=== PATIENT | female | born 1935 | race Caucasian/White ===

== ENCOUNTER 2018-08-12 16:56 | Inpatient (IN) ==
[2018-08-12] MEDS ORDERED: ALBUT/IPRATROP 3MG/0.5MG NEB 3 ML VIAL NEB STA (17:26)
[2018-08-12] MEDS ORDERED: ACETAMINOPHEN 1000 MG/100 ML IV IV STA (17:26)
[2018-08-12] MEDS ORDERED: ONDANSETRON INJ 2 MG/ML 2 ML VIAL IV STA (17:26)
[2018-08-12] MEDS ORDERED: SODIUM CHLORIDE 0.9% 1000ML 1,000 ML IV SCH (17:30)
--- NOTE | 2018-08-12 17:45 | Emergency Department Note ---
Entered by Sole Gonzalez acting as a scribe for Richi Alas MD History of Present Illness General Chief complaint: Hyperglycemia Stated complaint: HIGH BLOOD SUGAR, FEVER, HAS URINATED Time Seen by Provider: 08/12/18 17:19 Source: patient Limitations: no limitations History of Present Illness Provider complaint: dizziness Onset (ago): day(s) 1 Location: head Associated symptoms: + denies other symptoms (bloody stool, diarrhea ), + cough , + fever/chills (chills no fever) and + other (+fatigue, +wheezing) The patient is a 83 year old female who presents to the Emergency Room with complaints of dizziness that began 1 day prior to arrival. The patient states that she has fatigue, wheezing, chills, and a cough. The patient states that standing exacerbates her dizziness. The patient denies any bloody stool or diarrhea. The patient states that she hasn't been able to urinate. Per daughter , the patient's blood sugar was 325. The patient states that she takes medicine for anxiety. The patient states that she has been a smoker for 65+ years. Home Medications Home Medications Medication Instructions Recorded Confirmed Type albuterol sulfate 1 puff INHALATION Q6H PRN 08/12/18 08/12/18 History escitalopram oxalate 20 mg PO QAM 08/12/18 08/12/18 History fluticasone-salmeterol [Advair 1 inh INHALATION BID 08/12/18 08/12/18 History Diskus] gabapentin 600 mg PO HS 08/12/18 08/12/18 History levothyroxine 75 mcg PO QAM 08/12/18 08/12/18 History lisinopril 5 mg PO QAM 08/12/18 08/12/18 History metformin 1,000 mg PO BID 08/12/18 08/12/18 History Allergies Allergy/AdvReac Type Severity Reaction Status Date / Time No Known Allergies Allergy Unverified 08/12/18 18:22 Past Med/Surg History Medical History DM2 (diabetes mellitus, type 2) (Chronic) HTN (hypertension) (Chronic) HLD (hyperlipidemia) (Chronic) COPD (chronic obstructive pulmonary disease) (Chronic) Anxiety (Chronic) NHL (non-Hodgkin's lymphoma) (Chronic) Tobacco abuse (Chronic) Hypothyroidism (Chronic) COPD (chronic obstructive pulmonary disease) (Inactive) Diabetes type 2, controlled (Inactive) HLD (hyperlipidemia) (Inactive) HTN (hypertension) (Inactive) Surgical History S/P GERBER-BSO (Chronic) S/P GREBER-BSO (Inactive) Family History Other Family history non-contributory Social History Current Living Situation: Family Current Living Situation Comment: own home w/ son, other children live close by Other Information That Helps Us Care for You: No Feels Safe at Home: Yes Safety Concerns: Feels Safe At This Time Smoking Status: Current every day smoker Tobacco Type: cigarettes Cigarettes per Day: 20 Do You Dip or Chew Tobacco: No Hx Alcohol Use: No Hx Substance Use: No Beliefs That Will Affect Care: None Preferred Language: Serbian Communication Ability: Impaired Communication Ability Comment: ? terminal, has been given Ativan for restlessness/anxiety Mounter Smoking Pipe Required: No Review of Systems See HPI for pertinent positives & negatives. and A total of 10 systems reviewed and were otherwise negative Physical Exam Vital Signs Vital Signs - 24 hr 08/12/18 17:02 08/12/18 17:12 08/12/18 17:14 Temperature 36.3 C L Temperature Source Oral Sepsis Recent Fever Within 48 Hours No Sepsis Action Taken by Nursing No Action Required Pulse Rate 116 H 103 H 102 H Pulse Rate [Apical] Pulse Rhythm Pulse Rhythm [Apical] Pulse Strength [Apical] Respiratory Rate 22 30 H 29 H Respiratory Effort / Characteristics Non-Labored Respiratory Depth Normal Respiratory Pattern Blood Pressure 70/51 L 106/60 Blood Pressure [Right Arm] Blood Pressure Mean 57 75 Blood Pressure Mean [Right Arm] Blood Pressure Position Sitting Blood Pressure Position [Right Arm] Pulse Oximetry 99 Oxygen Delivery Method Room Air Fraction of Inspired Oxygen SaO2/FiO2 Ratio 08/12/18 17:15 08/12/18 17:30 08/12/18 17:43 Temperature Temperature Source Sepsis Recent Fever Within 48 Hours Sepsis Action Taken by Nursing Pulse Rate 101 H 100 H 100 H Pulse Rate [Apical] 100 H Pulse Rhythm Pulse Rhythm [Apical] Regular Pulse Strength [Apical] Normal Respiratory Rate 29 H 28 H 29 H Respiratory Effort / Characteristics Non-Labored Respiratory Depth Normal Respiratory Pattern Regular Blood Pressure 75/56 L Blood Pressure [Right Arm] 106/56 L Blood Pressure Mean 62 Blood Pressure Mean [Right Arm] 72 Blood Pressure Position Blood Pressure Position [Right Arm] Sitting Pulse Oximetry 92 Oxygen Delivery Method Room Air Fraction of Inspired Oxygen SaO2/FiO2 Ratio 08/12/18 17:44 08/12/18 17:45 08/12/18 17:47 Temperature Temperature Source Sepsis Recent Fever Within 48 Hours Sepsis Action Taken by Nursing Pulse Rate 100 H 100 H 97 H Pulse Rate [Apical] Pulse Rhythm Pulse Rhythm [Apical] Pulse Strength [Apical] Respiratory Rate 29 H 27 H 21 Respiratory Effort / Characteristics Respiratory Depth Respiratory Pattern Blood Pressure 76/60 L 71/52 L Blood Pressure [Right Arm] Blood Pressure Mean 65 58 Blood Pressure Mean [Right Arm] Blood Pressure Position Blood Pressure Position [Right Arm] Pulse Oximetry Oxygen Delivery Method Fraction of Inspired Oxygen SaO2/FiO2 Ratio 08/12/18 17:50 08/12/18 18:00 08/12/18 18:01 Temperature Temperature Source Sepsis Recent Fever Within 48 Hours Sepsis Action Taken by Nursing Pulse Rate 100 H 98 H 99 H Pulse Rate [Apical] Pulse Rhythm Regular Pulse Rhythm [Apical] Pulse Strength [Apical] Respiratory Rate 22 Respiratory Effort / Characteristics Respiratory Depth Respiratory Pattern Blood Pressure 89/71 L Blood Pressure [Right Arm] Blood Pressure Mean 77 Blood Pressure Mean [Right Arm] Blood Pressure Position Blood Pressure Position [Right Arm] Pulse Oximetry 94 92 92 Oxygen Delivery Method Room Air Fraction of Inspired Oxygen SaO2/FiO2 Ratio 08/12/18 18:15 08/12/18 18:29 08/12/18 18:31 Temperature Temperature Source Sepsis Recent Fever Within 48 Hours Sepsis Action Taken by Nursing Pulse Rate 99 H 102 H 102 H Pulse Rate [Apical] Pulse Rhythm Pulse Rhythm [Apical] Pulse Strength [Apical] Respiratory Rate 29 H 17 24 Respiratory Effort / Characteristics Respiratory Depth Respiratory Pattern Blood Pressure 82/64 L 89/61 L Blood Pressure [Right Arm] Blood Pressure Mean 70 70 Blood Pressure Mean [Right Arm] Blood Pressure Position Blood Pressure Position [Right Arm] Pulse Oximetry 90 Oxygen Delivery Method Fraction of Inspired Oxygen SaO2/FiO2 Ratio 08/12/18 18:45 08/12/18 18:51 08/12/18 18:58 Temperature Temperature Source Sepsis Recent Fever Within 48 Hours Sepsis Action Taken by Nursing Pulse Rate 95 H 93 H 95 H Pulse Rate [Apical] Pulse Rhythm Pulse Rhythm [Apical] Pulse Strength [Apical] Respiratory Rate 20 21 25 H Respiratory Effort / Characteristics Respiratory Depth Respiratory Pattern Blood Pressure 69/59 L 71/51 L Blood Pressure [Right Arm] Blood Pressure Mean 62 57 Blood Pressure Mean [Right Arm] Blood Pressure Position Blood Pressure Position [Right Arm] Pulse Oximetry 100 100 97 Oxygen Delivery Method Fraction of Inspired Oxygen SaO2/FiO2 Ratio 08/12/18 18:59 08/12/18 19:00 08/12/18 19:01 Temperature Temperature Source Sepsis Recent Fever Within 48 Hours Sepsis Action Taken by Nursing Pulse Rate 113 H 94 H Pulse Rate [Apical] 93 H Pulse Rhythm Pulse Rhythm [Apical] Regular Pulse Strength [Apical] Normal Respiratory Rate 21 20 14 Respiratory Effort / Characteristics Non-Labored Non-Labored Spontaneous Respiratory Depth Normal Respiratory Pattern Regular Blood Pressure 71/55 L Blood Pressure [Right Arm] 71/55 L Blood Pressure Mean 60 Blood Pressure Mean [Right Arm] 60 Blood Pressure Position Blood Pressure Position [Right Arm] Pulse Oximetry 100 97 98 Oxygen Delivery Method BiPAP Fraction of Inspired Oxygen 50 SaO2/FiO2 Ratio 08/12/18 19:15 08/12/18 19:16 08/12/18 19:26 Temperature Temperature Source Sepsis Recent Fever Within 48 Hours Sepsis Action Taken by Nursing Pulse Rate 95 H 99 H Pulse Rate [Apical] Pulse Rhythm Pulse Rhythm [Apical] Pulse Strength [Apical] Respiratory Rate 21 23 Respiratory Effort / Characteristics Non-Labored Spontaneous Respiratory Depth Normal Respiratory Pattern Regular Blood Pressure 65/55 L Blood Pressure [Right Arm] Blood Pressure Mean 58 Blood Pressure Mean [Right Arm] Blood Pressure Position Blood Pressure Position [Right Arm] Pulse Oximetry 98 98 Oxygen Delivery Method BiPAP Fraction of Inspired Oxygen SaO2/FiO2 Ratio 08/12/18 19:30 08/12/18 19:32 08/12/18 19:45 Temperature Temperature Source Sepsis Recent Fever Within 48 Hours Sepsis Action Taken by Nursing Pulse Rate 96 H 95 H 97 H Pulse Rate [Apical] Pulse Rhythm Pulse Rhythm [Apical] Pulse Strength [Apical] Respiratory Rate 22 22 25 H Respiratory Effort / Characteristics Respiratory Depth Respiratory Pattern Blood Pressure 68/56 L 78/53 L Blood Pressure [Right Arm] Blood Pressure Mean 60 61 Blood Pressure Mean [Right Arm] Blood Pressure Position Blood Pressure Position [Right Arm] Pulse Oximetry 99 100 99 Oxygen Delivery Method Fraction of Inspired Oxygen SaO2/FiO2 Ratio 08/12/18 19:46 08/12/18 20:00 08/12/18 20:31 Temperature Temperature Source Sepsis Recent Fever Within 48 Hours Sepsis Action Taken by Nursing Pulse Rate 96 H 98 H Pulse Rate [Apical] 110 H Pulse Rhythm Pulse Rhythm [Apical] Regular Pulse Strength [Apical] Weak Respiratory Rate 24 21 23 Respiratory Effort / Characteristics Non-Labored Spontaneous Respiratory Depth Normal Respiratory Pattern Regular Blood Pressure 66/56 L 84/63 L Blood Pressure [Right Arm] 84/60 L Blood Pressure Mean 59 70 Blood Pressure Mean [Right Arm] 68 Blood Pressure Position Blood Pressure Position [Right Arm] Pulse Oximetry 97 99 95 Oxygen Delivery Method BiPAP Fraction of Inspired Oxygen 50 SaO2/FiO2 Ratio 190 08/12/18 20:42 08/12/18 21:00 Temperature Temperature Source Sepsis Recent Fever Within 48 Hours Sepsis Action Taken by Nursing Pulse Rate 105 H Pulse Rate [Apical] Pulse Rhythm Pulse Rhythm [Apical] Pulse Strength [Apical] Respiratory Rate 28 H Respiratory Effort / Characteristics Spontaneous Labored Non-Labored Spontaneous Respiratory Depth Normal Normal Respiratory Pattern Regular Regular Blood Pressure Blood Pressure [Right Arm] Blood Pressure Mean Blood Pressure Mean [Right Arm] Blood Pressure Position Blood Pressure Position [Right Arm] Pulse Oximetry 96 Oxygen Delivery Method BiPAP Fraction of Inspired Oxygen 50 50 SaO2/FiO2 Ratio GENERAL: Patient is in no acute distress. HEENT: No acute trauma, normocephalic atraumatic, mucous membranes dry, no nasal congestion, no scleral icterus. NECK: No stridor, no adenopathy, no meningismus, trachea is midline. LUNGS: Scattered crackles bilaterally, no wheeze, breath sounds equal, no respiratory distress. HEART: Tachycardic with a regular rhythm, no murmurs. ABDOMEN: Soft, nontender, bowel sounds positive, no hernias, no peritonitis. EXTREMITIES: No cyanosis or edema, full range of motion of all the joints without pain or difficulty, no signs for acute trauma. NEUROLOGIC: Oriented x 3, no acute motor or sensory deficits, no focal weakness. SKIN: No rash, no jaundice, no diaphoresis, pale. Course 1720: Past medical records reviewed. The patient was evaluated in room A3, and a complete history and physical examination were performed. 1823: I checked on and updated the patient. The patient appears to be very ill and the patient states that she is a DNR. I am going to contact a [facility] hospitalist and discuss the patient's case. 1845: I discussed the patient's case with MISSY Franklin for [facility] who will evaluate the patient for further hospitalization. 1914: I checked on the patient again. I also had a discussion with the patient' s family about how sick the patient is and that she might not survive her hospital stay and they understood the patient's condition. 0: I discussed the patient's case with Dr. Pimentel - Critical Care from the ICU and he states that he is going to come and assess the patient. Consultations Consultation #1: MISSY Franklin for [facility] Time: 18:45 Consultation #2: Dr. Pimentel - Critical Care from the ICU Time: 19:20 Administered Medications Norepinephrine Bitartrate 8 mg (/ Dextrose) 508 mls @ 37.14 mls/hr IV .[id number] DOMENICA; Protocol Stop: 09/11/18 20:15 Last Titration: 08/12/18 21:03 Dose: 0.15 mcg/kg/min, 37.1 mls/hr Titration: 08/12/18 20:45 Dose: 0.1 mcg/kg/min, 24.8 mls/hr Admin: 08/12/18 20:38 Dose: 0.07 mcg/kg/min, 17.3 mls/hr Admin: 08/12/18 20:29 Dose: Not Given Discontinued Medications Acetaminophen (Ofirmev) 1,000 mg IV NOW STA Stop: 08/12/18 17:27 Last Admin: 08/12/18 18:36 Dose: 1,000 mg Albuterol (Duoneb) 3 ml NEB NOW STA Stop: 08/12/18 17:27 Last Admin: 08/12/18 18:35 Dose: 3 ml Sodium Chloride (Nss 1000ml) 1,000 mls @ 999 mls/hr IV .Q1H1M DOMENICA Stop: 08/12/18 18:30 Last Infusion: 08/12/18 19:41 Dose: 0 mls/hr Admin: 08/12/18 18:34 Dose: 999 mls/hr Cefepime HCl 2,000 mg/ Syringe 20 mls @ 5.5 mls/min IV NOW STA Stop: 08/12/18 18:19 Last Admin: 08/12/18 19:00 Dose: 5.5 mls/min Lorazepam (Ativan) 0.5 mg in 1 mls @ 1 mls/min IV NOW STA Stop: 08/12/18 18:25 Last Admin: 08/12/18 18:34 Dose: 1 mls/min Sodium Chloride (Nss 1000ml) 1,000 mls @ 999 mls/hr IV .Q1H1M ONE Stop: 08/12/18 19:30 Last Infusion: 08/12/18 19:40 Dose: 0 mls/hr Admin: 08/12/18 18:33 Dose: 999 mls/hr Norepinephrine Bitartrate 8 mg (/ Dextrose) 508 mls @ 12.38 mls/hr IV .Q24H STA ; Protocol Stop: 08/13/18 19:33 Last Admin: 08/12/18 19:52 Dose: 0.05 mcg/kg/min, 12.4 mls/hr Sodium Chloride (Nss) 500 mls @ 999 mls/hr IV .Q31M STA Stop: 08/12/18 20:34 Last Infusion: 08/12/18 20:58 Dose: 0 mls/hr Admin: 08/12/18 20:28 Dose: 999 mls/hr Ondansetron HCl (Zofran) 4 mg IV NOW STA Stop: 08/12/18 17:27 Last Admin: 08/12/18 18:33 Dose: 4 mg Medical Decision Making Differential Diagnosis The patient is a 83 year old female who presents to the ED with dizziness. Differential diagnosis includes dehydration, sepsis, UTI, pneumonia, electrolyte imbalance, renal failure, anemia, and GI bleed. Medical Records Attestation: I reviewed the patient's medical records. Home Medications Current Medication List: was personally reviewed by me Laboratory Data Attestation: I reviewed the patient's lab results. Result diagrams: 08/12/18 18:35 08/12/18 17:30 Lab Results 08/12/18 08/12/18 08/12/18 Range/Units 17:05 17:30 18:35 WBC (4.8-10.8) K/uL RBC (4.2-5.4) M/uL Hgb (12.0-16.0) g/dL Hct (37-47) % MCV (80-100) fL MCH (25-34) pg MCHC (32-36) g/dL RDW Std Deviation (36.4-46.3) fL RDW Coeff of Blayne (11.5-14.5) % Plt Count (130-400) K/uL MPV (7.4-10.4) fL Immature Gran % (Auto) % Neut % (Auto) % Lymph % (Auto) % [place] % (Auto) % Eos % (Auto) % Baso % (Auto) % Immature Gran # (Auto) (0.00-0.02) K/uL Neut # (Auto) (1.4-6.5) K/uL Lymph # (Auto) (1.2-3.4) K/uL [place] # (Auto) (0.11-0.59) K/uL Eos # (Auto) (0-0.5) K/uL Baso # (Auto) (0-0.2) K/uL APTT (21.0-31.0) Seconds PTT Ratio Sodium 132 L (136-145) mmol/L Potassium 5.2 H (3.5-5.1) mmol/L Chloride 97 L (98-107) mmol/L Carbon Dioxide 16 L (21-32) mmol/L Anion Gap 19.0 H (3-11) BUN 27 H (7-18) mg/dl Creatinine 2.51 H (0.6-1.2) mg/dl Est Cr Clr Drug Dosing 14.1 ml/min Est GFR ( Amer) 19.6 Est GFR (Non-Af Amer) 16.9 BUN/Creatinine Ratio 10.8 (10-20) Glucose 254 H (70-99) mg/dl POC Glucose 311 H (70-99) Lactate 10.6 H* (0.4-2.0) mmol/L Calcium 9.3 (8.5-10.1) mg/dl Magnesium 2.0 (1.8-2.4) mg/dl Total Bilirubin 0.3 (0.2-1) mg/dl AST 789 H (15-37) U/L ALT 106 H (12-78) U/L Alkaline Phosphatase 97 (45-117) U/L Troponin I > 200.000 H* (0-0.045) ng/ml Total Protein 8.1 (6.4-8.2) gm/dl Albumin 3.7 (3.4-5.0) gm/dl Globulin 4.4 H (2.5-4.0) gm/dl Albumin/Globulin Ratio 0.8 L (0.9-2) TSH 4.750 H (0.300-4.500) uIu/ml Free T4 1.25 (0.8-1.6) ng/dl 08/12/18 08/12/18 08/12/18 Range/Units 18:35 18:35 20:30 WBC 16.81 H (4.8-10.8) K/uL RBC 4.66 (4.2-5.4) M/uL Hgb 12.9 (12.0-16.0) g/dL Hct 40.3 (37-47) % MCV 86.5 (80-100) fL MCH 27.7 (25-34) pg MCHC 32.0 (32-36) g/dL RDW Std Deviation 46.9 H (36.4-46.3) fL RDW Coeff of Blayne 14.8 H (11.5-14.5) % Plt Count 211 (130-400) K/uL MPV 9.8 (7.4-10.4) fL Immature Gran % (Auto) 0.2 % Neut % (Auto) 83.6 % Lymph % (Auto) 6.6 % Pend[place] % (Auto) 9.5 % Eos % (Auto) 0.0 % Baso % (Auto) 0.1 % Immature Gran # (Auto) 0.04 H (0.00-0.02) K/uL Neut # (Auto) 14.05 H (1.4-6.5) K/uL Lymph # (Auto) 1.11 L (1.2-3.4) K/uL [place] # (Auto) 1.60 H (0.11-0.59) K/uL Eos # (Auto) 0.00 (0-0.5) K/uL Baso # (Auto) 0.01 (0-0.2) K/uL APTT 25.9 (21.0-31.0) Seconds PTT Ratio 1.0 Sodium (136-145) mmol/L Potassium (3.5-5.1) mmol/L Chloride (98-107) mmol/L Carbon Dioxide (21-32) mmol/L Anion Gap (3-11) BUN (7-18) mg/dl Creatinine (0.6-1.2) mg/dl Est Cr Clr Drug Dosing ml/min Est GFR ( Amer) Est GFR (Non-Af Amer) BUN/Creatinine Ratio (10-20) Glucose (70-99) mg/dl POC Glucose 169 H (70-99) Lactate (0.4-2.0) mmol/L Calcium (8.5-10.1) mg/dl Magnesium (1.8-2.4) mg/dl Total Bilirubin (0.2-1) mg/dl AST (15-37) U/L ALT (12-78) U/L Alkaline Phosphatase (45-117) U/L Troponin I (0-0.045) ng/ml Total Protein (6.4-8.2) gm/dl Albumin (3.4-5.0) gm/dl Globulin (2.5-4.0) gm/dl Albumin/Globulin Ratio (0.9-2) TSH (0.300-4.500) uIu/ml Free T4 (0.8-1.6) ng/dl Imaging Data Radiologist's Impression: Radiology results as stated below per my review and the radiologist's interpretation: XR chest 1V portable HISTORY: 83 years-old Female weakness acute generalized weakness COMPARISON: Chest radiographs 05/10/2016, chest CT 01/02/2013 TECHNIQUE: Portable AP view of the chest FINDINGS: Cardiac silhouette is mildly enlarged. Pulmonary vascular congestion. Calcification the thoracic aortic arch. Lungs are hyperinflated. No pneumothorax. Disease bilateral interstitial coarsening with patchy right perihilar and right greater than left bibasilar alveolar opacities. Mild biapical pleural-parenchymal scarring. No large pleural effusion. Levoscoliosis of the thoracolumbar spine. IMPRESSION: 1. Cardiomegaly with pulmonary vascular congestion and interstitial coarsening suggestive of chronic changes or mild pulmonary edema. 2. Right perihilar and right greater than left bibasilar alveolar opacities are suspicious for pneumonitis with atelectasis also within the differential. The above report was generated using voice recognition software. It may contain grammatical, syntax or spelling errors. Electronically signed by: Enzo Westbrook M.D. 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 No concerning anemia. Renal panel testing does show acute renal failure with a creatinine of 2.5. Potassium slightly elevated at 5.2. Glucose elevated at over 300. CO2 was low at 16 consistent with acidosis. Lactic acid level was elevated at 10.6, this is consistent with sepsis and/or dehydration. Chest film suggests a lower lobe pneumonia worse on the right. Blood cultures are pending. EKG shows a new right bundle branch block. Cardiac enzyme testing is quite elevated, the troponin is elevated at over 200. This is concerning for recent MO. There is some liver enzyme elevation. The patient presents hypotensive and tachycardic. She appeared ill on my exam. I did have a discussion with the patient and her family. She is not to be aggressively managed. No intubation, no CPR. The patient was given a DuoNeb. She was placed on BiPAP. She received 2.5 L of IV saline for hydration. She was given IV cefepime as antibiotic coverage. She received IV Tylenol for pain. She received IV Zofran for nausea. She became anxious and did well with a small dose of Ativan, 0.5 mg IV. The patient is in critical condition. She has elevated liver enzymes, she has suffered a recent MO. She has pneumonia and is hypotensive. I do believe she is septic. She may not survive this hospitalization and the family is aware. I did speak to case management, I talked with the on-call hospitalist. The ICU attending has been involved and has seen the patient in the ED. Impression & Plan Sepsis, Acute MO, Hypotension, Acute renal failure, Pneumonia Critical Care Time I have personally spent greater than 45 minutes of critical care time in the direct management of this patient. This includes bedside care, interpretation of diagnostic studies, and testing, discussion with consultants, patient, and family members, and other required patient management activities. This 45 minutes is in excess of all separately billable procedures. Critical Care Time: Yes Total Critical Care Time: 45 Discharge Plan Visit Data *Final* Discharge Date/Time: 08/12/18 20:31 Chief Complaint: Hyperglycemia Stated Complaint: HIGH BLOOD SUGAR, FEVER, HAS URINATED ED Provider: Richi Alas Discharge Problem: Sepsis, Acute MO, Hypotension, Acute renal failure, Pneumonia Patient Disposition: Admitted As Inpatient Discharge Instructions Interventions: ED Discharge Assessment Last Done: 08/12/18 20:31 The scribe's documentation has been prepared under my direction and personally reviewed by me in its entirety. I confirm that the note above accurately reflects all work, treatment, procedures, and medical decision making performed by me.
[2018-08-12] MEDS ORDERED: CEFEPIME 2,000 MG in SYRINGE 7.5 ML IV STA (18:16)
--- NOTE | 2018-08-12 18:17 | XRay Report ---
XR chest 1V portable HISTORY: 83 years-old Female weakness acute generalized weakness COMPARISON: Chest radiographs 05/10/2016, chest CT 01/02/2013 TECHNIQUE: Portable AP view of the chest FINDINGS: Cardiac silhouette is mildly enlarged. Pulmonary vascular congestion. Calcification the thoracic aort ic arch. Lungs are hyperinflated. No pneumothorax. Disease bilateral interstitial coarsening with pat aleja right perihilar and right greater than left bibasilar alveolar opacities. Mild biapical pleural-p arenchymal scarring. No large pleural effusion. Levoscoliosis of the thoracolumbar spine. IMPRESSION: 1. Cardiomegaly with pulmonary vascular congestion and interstitial coarsening suggestive of chronic changes or mild pulmonary edema. 2. Right perihilar and right greater than left bibasilar alveolar opacities are suspicious for pneumo nitis with atelectasis also within the differential. The above report was generated using voice recognition software. It may contain grammatical, syntax o r spelling errors. Electronically signed by: Enzo Westbrook M.D. 08/12/2018 6:16 PM
[2018-08-12] MEDS ORDERED: LORazepam 0.5 MG/1 ML VIAL IV STA (18:24)
[2018-08-12] MEDS ORDERED: SODIUM CHLORIDE 0.9% 1000ML 1,000 ML IV ONE (18:30)
[2018-08-12 18:31] LABS: Alanine Aminotransferase 106 U/L (12-78); Albumin Level 3.7 gm/dl (3.4-5.0); Aspartate Aminotransferase 789 U/L (15-37); BUN Creatinine Ratio 10.8 (10-20); Blood Urea Nitrogen 27 mg/dl (7-18); Calcium 9.3 mg/dl (8.5-10.1); Carbon Dioxide 16 mmol/L (21-32); Chloride 97 mmol/L (98-107); Creatinine Clr Calc Pharmacy 14.1 ml/min; Est GFR (African American) 19.6; Est GFR (Non-African American) 16.9; Glucose 254 mg/dl (70-99); Potassium 5.2 mmol/L (3.5-5.1); Sodium 132 mmol/L (136-145)
[2018-08-12 18:45] LABS: Basophils # (auto) 0.01 K/uL (0-0.2); Basophils % (auto) 0.1 %; Hematocrit (blood only) 40.3 % (37-47); Hemoglobin 12.9 g/dL (12.0-16.0); Immature Granulocytes # (auto) 0.04 K/uL (0.00-0.02); Immature Granulocytes % (auto) 0.2 %; Lymphocytes # (auto) 1.11 K/uL (1.2-3.4); Lymphocytes % (auto) 6.6 %; Mean Corpuscular Volume 86.5 fL (80-100); Mean Platelet Volume 9.8 fL (7.4-10.4); Monocytes % (auto) 9.5 %; Neutrophils # (auto) 14.05 K/uL (1.4-6.5); Neutrophils % (auto) 83.6 %; Platelet Count 211 K/uL (130-400); RDW Coefficient of Variation 14.8 % (11.5-14.5); RDW Standard Deviation 46.9 fL (36.4-46.3); Red Blood Count 4.66 M/uL (4.2-5.4); White Blood Count 16.81 K/uL (4.8-10.8)
[2018-08-12 19:04] LABS: Albumin Globulin Ratio 0.8 (0.9-2); Alkaline Phosphatase 97 U/L (45-117); Bilirubin,Total 0.3 mg/dl (0.2-1); Globulin 4.4 gm/dl (2.5-4.0); T4 Free Thyroxine 1.25 ng/dl (0.8-1.6); Total Protein 8.1 gm/dl (6.4-8.2); Troponin I > 200.000 ng/ml (0-0.045)
[2018-08-12] MEDS ORDERED: NOREPINEPHRINE BIT INJ 8 MG in DEXTROSE 5% 500 ML IV STA (19:34)
--- NOTE | 2018-08-12 20:02 | Critical Care Consultation ---
Date of Consultation August 12, 2018 Supervising Physician Co-Signing Physician Notes Reason Critically Ill: 83-year-old female with subacute UT in cardiogenic shock PLAN: Neuro: Acute encephalopathy -Morphine for patient comfort if and when family desires to transition to total comfort measures Resp: Acute hypoxic respiratory failure Pulmonary edema -Noninvasive mechanical ventilation CV: Cardiogenic shock -Vasoactive medication administration to prolonged life as to allow family members to visit Fluids/Renal: Acute kidney injury -No additional fluid given poor cardiac status at this time Hyperkalemia Profound lactic acidosis GI/Nutrition: Transaminitis -Secondary to cardiogenic shock Heme: Leukocytosis DVT prophylaxis: SCDs Endocrine: Hyperglycemia Vascular access: Peripheral IVs Code Status: DO NOT RESUSCITATE As per extensive family discussion she would does not want to undergo heroic invasive measures, the patient has suffered a significant cardiac injury and is an active cardiogenic shock. She is not a candidate for mechanical assist devices per her wishes and therefore I do believe this is not survivable and I believe the patient is in end-stage medical condition without meaningful chance of recovery. I have personally spent 50 minutes of critical care time in the direct management of this patient. This is a life/limb threatening event. This includes time spent evaluating patient, direct bedside care, chart review, placing orders, interpretation of diagnostic studies, discussion with consultants, patient, and/or family members regarding treatment decisions, as well as other required patient management activities. This time is exclusive of all separately billable procedures, and teaching time and separate from and in addition to any other critical care service time. History of Present Illness Reason for Consultation: Hypotension Requesting Physician: Richi Alas MD History of Present Illness History is obtained from additional family members, the patient's daughter and [id number] are present at the bedside. Additional history is obtained from the ED provider as well as Fany hays the [facility] hospitalist. Patient was complaining of back pain yesterday she refused to come to seek medical treatment, patient became more somnolent today and short of breath and came to [facility] emergency department for further evaluation and treatment. She was found to be in respiratory distress and having acute hypoxic respiratory failure she was started on noninvasive mechanical ventilation per her request as she does not want a breathing tube in any circumstances. Patient was given 0.5 mg Ativan for anxiety as she was becoming more anxious throughout her ED course and the patient became more somnolent. Laboratory analysis reveals a profound acute kidney injury, elevated white count , profound cardiac injury with troponins greater than 200, new EKG changes. In discussion with the patient's daughters she would not want heroic measures undertaken in event of cardiac arrest. I discussed the risk benefits of advanced vascular access for the administration for vasoactive medications and they do not feel the patient would want this either. I performed a limited bedside echo, there is significant wall motion abnormalities of the left ventricle and essentially akinesis of the apex of the left ventricle the right ventricle appears to be hyperdynamic. Her IVC does not show any respiratory variation. She has a transaminitis on her LFTs, I believe the patient is in severe cardiogenic shock and the significance of this injury is incompatible with life. I have expressed this to the patient's daughters and at this time desire to contact family members who desire to come see her. We will be starting vasoactive medication through the peripheral IVs with the goal of prolonging life to allow additional family members to see her before she passes. When I discussed possibilities of coronary interventions they are inconsistent with the patient's wishes. Allergies Allergy/AdvReac Type Severity Reaction Status Date / Time No Known Allergies Allergy Unverified 08/12/18 18:22 Home Medications Home Medications Medication Instructions Recorded Confirmed Type albuterol sulfate 1 puff INHALATION Q6H PRN 08/12/18 08/12/18 History escitalopram oxalate 20 mg PO QAM 08/12/18 08/12/18 History fluticasone-salmeterol [Advair 1 inh INHALATION BID 08/12/18 08/12/18 History Diskus] gabapentin 600 mg PO HS 08/12/18 08/12/18 History levothyroxine 75 mcg PO QAM 08/12/18 08/12/18 History lisinopril 5 mg PO QAM 08/12/18 08/12/18 History metformin 1,000 mg PO BID 08/12/18 08/12/18 History Patient History Medical History COPD (chronic obstructive pulmonary disease) Diabetes type 2, controlled HLD (hyperlipidemia) HTN (hypertension) Surgical History S/P GERBER-BSO Social History Current Living Situation: Family Current Living Situation Comment: own home w/ son, other children live close by Other Information That Helps Us Care for You: No Feels Safe at Home: Yes Safety Concerns: Feels Safe At This Time Smoking Status: Current every day smoker Tobacco Type: cigarettes Cigarettes per Day: 20 Do You Dip or Chew Tobacco: No Hx Alcohol Use: No Hx Substance Use: No Beliefs That Will Affect Care: None Preferred Language: Swedish Communication Ability: Impaired Communication Ability Comment: ? terminal, has been given Ativan for restlessness/anxiety Golf Technician Required: No Review of Systems Unable to obtain due to patient's somnolence Physical Exam 2 Vital Signs (Past 24 Hours): Last Vital Signs Temp 36.3 C L 08/12/18 17:02 Pulse 95 H 08/12/18 19:32 Resp 22 08/12/18 19:32 BP 78/53 L 08/12/18 19:32 Pulse Ox 100 08/12/18 19:32 general: An elderly female who appears her stated age I have reviewed the recorded vital signs Neurological: RASS score: -2, Moves all 4 extremities with painful stimuli, Psychological: Glascow Coma Scale: Eyes: 3, Verbal 3, Motor 5, Total 11 not following complex commands Eyes: Pupils are equal, round and reactive to light, anicteric sclera. Symmetrical lids. HENT: Oropharynx is obscured by the noninvasive mask Neck: Supple. Symmetric. trachea midline. No thyromegaly. Cardiovascular: Decreased peripheral perfusion. Distal pulses and capillary refill is poor. Respiratory: Respirations are labored, mild muscle use. Rhonchi and mild Rales. Gastrointestinal: Soft. Non-distended. Lymphatic: No cervical lymphadenopathy. Musculoskeletal: No deformity. No clubbing, cool extremities with mild distal cyanosis Results & Data Laboratory Results 08/12/18 08/12/18 08/12/18 Range/Units 18:35 18:35 17:30 WBC 16.81 H (4.8-10.8) K/uL RBC 4.66 (4.2-5.4) M/uL Hgb 12.9 (12.0-16.0) g/dL Hct 40.3 (37-47) % MCV 86.5 (80-100) fL MCH 27.7 (25-34) pg MCHC 32.0 (32-36) g/dL RDW Std Deviation 46.9 H (36.4-46.3) fL RDW Coeff of [place]ayne 14.8 H (11.5-14.5) % Plt Count 211 (130-400) K/uL MPV 9.8 (7.4-10.4) fL Immature Gran % (Auto) 0.2 % Neut % (Auto) 83.6 % Lymph % (Auto) 6.6 % [place] % (Auto) 9.5 % Eos % (Auto) 0.0 % Baso % (Auto) 0.1 % Immature Gran # (Auto) 0.04 H (0.00-0.02) K/uL Neut # (Auto) 14.05 H (1.4-6.5) K/uL Lymph # (Auto) 1.11 L (1.2-3.4) K/uL [place] # (Auto) 1.60 H (0.11-0.59) K/uL Eos # (Auto) 0.00 (0-0.5) K/uL Baso # (Auto) 0.01 (0-0.2) K/uL Sodium 132 L (136-145) mmol/L Potassium 5.2 H (3.5-5.1) mmol/L Chloride 97 L (98-107) mmol/L Carbon Dioxide 16 L (21-32) mmol/L Anion Gap 19.0 H (3-11) BUN 27 H (7-18) mg/dl Creatinine 2.51 H (0.6-1.2) mg/dl Est Cr Clr Drug Dosing 14.1 ml/min Est GFR ( Amer) 19.6 Est GFR (Non-Af Amer) 16.9 BUN/Creatinine Ratio 10.8 (10-20) Glucose 254 H (70-99) mg/dl POC Glucose (70-99) Lactate 10.6 H* (0.4-2.0) mmol/L Calcium 9.3 (8.5-10.1) mg/dl Magnesium 2.0 (1.8-2.4) mg/dl Total Bilirubin 0.3 (0.2-1) mg/dl AST 789 H (15-37) U/L ALT 106 H (12-78) U/L Alkaline Phosphatase 97 (45-117) U/L Troponin I > 200.000 H* (0-0.045) ng/ml Total Protein 8.1 (6.4-8.2) gm/dl Albumin 3.7 (3.4-5.0) gm/dl Globulin 4.4 H (2.5-4.0) gm/dl Albumin/Globulin Ratio 0.8 L (0.9-2) TSH 4.750 H (0.300-4.500) uIu/ml Free T4 1.25 (0.8-1.6) ng/dl 08/12/18 Range/Units 17:05 WBC (4.8-10.8) K/uL RBC (4.2-5.4) M/uL Hgb (12.0-16.0) g/dL Hct (37-47) % MCV (80-100) fL MCH (25-34) pg MCHC (32-36) g/dL RDW Std Deviation (36.4-46.3) fL RDW Coeff of Blayne (11.5-14.5) % Plt Count (130-400) K/uL MPV (7.4-10.4) fL Immature Gran % (Auto) % Neut % (Auto) % Lymph % (Auto) % [place] % (Auto) % Eos % (Auto) % Baso % (Auto) % Immature Gran # (Auto) (0.00-0.02) K/uL Neut # (Auto) (1.4-6.5) K/uL Lymph # (Auto) (1.2-3.4) K/uL [place] # (Auto) (0.11-0.59) K/uL Eos # (Auto) (0-0.5) K/uL Baso # (Auto) (0-0.2) K/uL Sodium (136-145) mmol/L Potassium (3.5-5.1) mmol/L Chloride (98-107) mmol/L Carbon Dioxide (21-32) mmol/L Anion Gap (3-11) BUN (7-18) mg/dl Creatinine (0.6-1.2) mg/dl Est Cr Clr Drug Dosing ml/min Est GFR ( Amer) Est GFR (Non-Af Amer) BUN/Creatinine Ratio (10-20) Glucose (70-99) mg/dl POC Glucose 311 H (70-99) Lactate (0.4-2.0) mmol/L Calcium (8.5-10.1) mg/dl Magnesium (1.8-2.4) mg/dl Total Bilirubin (0.2-1) mg/dl AST (15-37) U/L ALT (12-78) U/L Alkaline Phosphatase (45-117) U/L Troponin I (0-0.045) ng/ml Total Protein (6.4-8.2) gm/dl Albumin (3.4-5.0) gm/dl Globulin (2.5-4.0) gm/dl Albumin/Globulin Ratio (0.9-2) TSH (0.300-4.500) uIu/ml Free T4 (0.8-1.6) ng/dl
[2018-08-12] MEDS ORDERED: SODIUM CHLORIDE 0.9% 500 ML IV STA (20:04)
--- NOTE | 2018-08-12 20:08 | History & Physical Report ---
Date of Service August 12, 2018 Assessment & Plan (1) Respiratory failure: (2) Cardiogenic shock: (3) Acute renal failure: Patient will be admitted to ICU. Patient was brought to the ED by her daughter and [id number] after she was found to be short of breath, wheezing, with confusion. Unfortunately upon arrival to the ER, patient was found to have several lab abnormalities, hypotensive, and respiratory distress. Labs demonstrate a troponin > 200 with acute EKG changes. Dr. Pimentel evaluated the patient in the ED and performed a bedside cardiac ultrasound that demonstrated severe left ventricular dysfunction. Patient is likely suffering from cardiogenic shock from massive myocardial infarction. The extent of patient's illness was discussed with patient's daughter and [id number] by Dr. Pimentel. They expressed that the patient would not want CPR or mechanical ventilation. Treatment options were discussed and it was decided that patient will be placed on IV vasopressors only to support blood pressure until her family can arrive. No central lines will be placed. Unable to give further IVF due to severe left ventricular dysfunction. History of Present Illness Chief Complaint: Shortness of Breath Primary Care Provider: Hina Amaya 83 year old female who was brought to the ED by her family for evaluation of shortness of breath. Due to patient's current mental status, history is unobtainable from her. Patient's daughter and [id number] are at the bedside and provide the history. The daughter reports that she received a phone call from her brother earlier today stating that her mother was not well. When she arrived to her mother's house, she found the patient short of breath , wheezing, and mildly confused. Patient also was incontinent of stool which is very unusual for her. She was then brought to the ED for further evaluation. Daughter also reports that her mother has been complaining of back pain for the past couple of days. No other reported symptoms. In the ED, patient was found to be severely ill with hypotension and respiratory distress. She was given IV Ativan and placed on BiPAP. Chest x-ray showing congestive heart failure with pneumonia versus atelectasis. She has several lab abnormalities including WBC 16 K, creatinine 2.5, lactate 10.6, troponin > 200 with acute EKG changes. Bedside cardiac ultrasound completed by Dr. Pimentel demonstrates severe left ventricular dysfunction. In the ED, patient was also given IVF, IV cefepime, nebulizer treatment. Allergies Allergy/AdvReac Type Severity Reaction Status Date / Time No Known Allergies Allergy Unverified 08/12/18 18:22 Home Medications Home Medications Medication Instructions Recorded Confirmed Type albuterol sulfate 1 puff INHALATION Q6H PRN 08/12/18 08/12/18 History escitalopram oxalate 20 mg PO QAM 08/12/18 08/12/18 History fluticasone-salmeterol [Advair 1 inh INHALATION BID 08/12/18 08/12/18 History Diskus] gabapentin 600 mg PO HS 08/12/18 08/12/18 History levothyroxine 75 mcg PO QAM 08/12/18 08/12/18 History lisinopril 5 mg PO QAM 08/12/18 08/12/18 History metformin 1,000 mg PO BID 08/12/18 08/12/18 History Past Med/Surg History Medical History DM2 (diabetes mellitus, type 2) (Chronic) HTN (hypertension) (Chronic) HLD (hyperlipidemia) (Chronic) COPD (chronic obstructive pulmonary disease) (Chronic) Anxiety (Chronic) NHL (non-Hodgkin's lymphoma) (Chronic) Tobacco abuse (Chronic) Hypothyroidism (Chronic) COPD (chronic obstructive pulmonary disease) (Inactive) Diabetes type 2, controlled (Inactive) HLD (hyperlipidemia) (Inactive) HTN (hypertension) (Inactive) Surgical History S/P GERBER-BSO (Chronic) S/P GERBER-BSO (Inactive) Family History Other Family history non-contributory Social History Current Living Situation: Family Current Living Situation Comment: own home w/ son, other children live close by Other Information That Helps Us Care for You: No Feels Safe at Home: Yes Safety Concerns: Feels Safe At This Time Smoking Status: Current every day smoker Tobacco Type: cigarettes Cigarettes per Day: 20 Do You Dip or Chew Tobacco: No Hx Alcohol Use: No Hx Substance Use: No Beliefs That Will Affect Care: None Preferred Language: Indonesian Review of Systems Unobtainable due to reduced consciousness Physical Exam 2 Vital Signs (Past 24 Hours): Last Vital Signs Temp 36.3 C L 08/12/18 17:02 Pulse 98 H 08/12/18 20:00 Resp 21 08/12/18 20:00 BP 84/63 L 08/12/18 20:00 Pulse Ox 99 08/12/18 20:00 Constitutional: WD/WN, vitals as above Appears to be resting in bed comfortably, tolerating BiPAP Arouses to loud verbal stimuli however falls back to sleep quickly Eyes: PERRL, conjunctivae normal, anicteric sclerae ENMT: external ear and nose normal, oropharynx normal Respiratory: normal respiratory effort (Tolerating BiPAP well); no respiratory distress Auscultation: + rhonchi (Bilateral bases) and + wheezes (Expiratory) Cardiovascular: Rate/Rhythm: regular rate and regular rhythm Vessels: normal peripheral pulses Extremities: + edema (Trace edema BLE) Gastrointestinal (Abdomen): normal bowel sounds, soft, nontender, no hepatosplenomegaly Musculoskeletal: Extremities: no cyanosis and no clubbing Unable to test strength due to current mental state Skin: no rashes, warm and dry Neurologic: Arouses to loud verbal stimuli, however falls back to sleep quickly; unable to perform full neurologic exam Results & Data Laboratory Results Laboratory Last Values WBC 16.81 K/uL (4.8-10.8) H 08/12/18 18:35 RBC 4.66 M/uL (4.2-5.4) 08/12/18 18:35 Hgb 12.9 g/dL (12.0-16.0) 08/12/18 18:35 Hct 40.3 % (37-47) 08/12/18 18:35 MCV 86.5 fL (80-100) 08/12/18 18:35 MCH 27.7 pg (25-34) 08/12/18 18:35 MCHC 32.0 g/dL (32-36) 08/12/18 18:35 RDW Std Deviation 46.9 fL (36.4-46.3) H 08/12/18 18:35 RDW Coeff of Blayne 14.8 % (11.5-14.5) H 08/12/18 18:35 Plt Count 211 K/uL (130-400) 08/12/18 18:35 MPV 9.8 fL (7.4-10.4) 08/12/18 18:35 Immature Gran % (Auto) 0.2 % 08/12/18 18:35 Neut % (Auto) 83.6 % 08/12/18 18:35 Lymph % (Auto) 6.6 % 08/12/18 18:35 [place] % (Auto) 9.5 % 08/12/18 18:35 Eos % (Auto) 0.0 % 08/12/18 18:35 Baso % (Auto) 0.1 % 08/12/18 18:35 Immature Gran # (Auto) 0.04 K/uL (0.00-0.02) H 08/12/18 18:35 Neut # (Auto) 14.05 K/uL (1.4-6.5) H 08/12/18 18:35 Lymph # (Auto) 1.11 K/uL (1.2-3.4) L 08/12/18 18:35 [place] # (Auto) 1.60 K/uL (0.11-0.59) H 08/12/18 18:35 Eos # (Auto) 0.00 K/uL (0-0.5) 08/12/18 18:35 Baso # (Auto) 0.01 K/uL (0-0.2) 08/12/18 18:35 Sodium 132 mmol/L (136-145) L 08/12/18 17:30 Potassium 5.2 mmol/L (3.5-5.1) H 08/12/18 17:30 Chloride 97 mmol/L (98-107) L 08/12/18 17:30 Carbon Dioxide 16 mmol/L (21-32) L 08/12/18 17:30 Anion Gap 19.0 (3-11) H 08/12/18 17:30 BUN 27 mg/dl (7-18) H 08/12/18 17:30 Creatinine 2.51 mg/dl (0.6-1.2) H 08/12/18 17:30 Est Cr Clr Drug Dosing 14.1 ml/min 08/12/18 17:30 Est GFR ( Amer) 19.6 08/12/18 17:30 Est GFR (Non-Af Amer) 16.9 08/12/18 17:30 BUN/Creatinine Ratio 10.8 (10-20) 08/12/18 17:30 Glucose 254 mg/dl (70-99) H 08/12/18 17:30 POC Glucose 311 (70-99) H 08/12/18 17:05 Lactate 10.6 mmol/L (0.4-2.0) H* 08/12/18 18:35 Calcium 9.3 mg/dl (8.5-10.1) 08/12/18 17:30 Magnesium 2.0 mg/dl (1.8-2.4) 08/12/18 17:30 Total Bilirubin 0.3 mg/dl (0.2-1) 08/12/18 17:30 AST 789 U/L (15-37) H 08/12/18 17:30 ALT 106 U/L (12-78) H 08/12/18 17:30 Alkaline Phosphatase 97 U/L (45-117) 08/12/18 17:30 Troponin I > 200.000 ng/ml (0-0.045) H* 08/12/18 17:30 Total Protein 8.1 gm/dl (6.4-8.2) 08/12/18 17:30 Albumin 3.7 gm/dl (3.4-5.0) 08/12/18 17:30 Globulin 4.4 gm/dl (2.5-4.0) H 08/12/18 17:30 Albumin/Globulin Ratio 0.8 (0.9-2) L 08/12/18 17:30 TSH 4.750 uIu/ml (0.300-4.500) H 08/12/18 17:30 Free T4 1.25 ng/dl (0.8-1.6) 08/12/18 17:30 Diagnostic Findings CXR IMPRESSION: 1. Cardiomegaly with pulmonary vascular congestion and interstitial coarsening suggestive of chronic changes or mild pulmonary edema. 2. Right perihilar and right greater than left bibasilar alveolar opacities are suspicious for pneumonitis with atelectasis also within the differential. Code Status & VTE Plan Code Status Patient is a DNR as per my discussion with patient's daughter who is the bedside. Supervising Physician Co-Signing Physician Notes IM ATTENDING : Patient seen and examined. History obtained from patient, family, and records. Preceding documentation by MISSY Weller reviewed. FINAL ASSESSMENT AND PLAN as follows : Cardiogenic shock secondary to acute myocardial infarction CHF secondary to above Acute renal failure, hyperkalemia secondary to above COPD, ongoing tobacco abuse Not in acute exacerbation DM 2, on oral meds Well-controlled as of recent outpatient hemoglobin A1c of 6.3 July, ICU to facilitate pressor therapy to temporize patient decline until family arrives as per discussion with family. Palliative care, except for pressor therapy- Patient and family have otherwise declined active management of cardiac and other medical issues as per discussion with ICU provider. DNR _ (1) Acute renal failure Acute renal failure type: unspecified Qualified Code(s): N17.9 - Acute kidney failure, unspecified
--- NOTE | 2018-08-12 20:12 | Procedure Note ---
Procedure Note Date of Service August 12, 2018 Critical Care Medicine Point of Care Bedside Ultrasound Procedure: Limited Transthoracic Echocardiogram Indication: Profound hypotension Attending: Neda Pimentel DO Fellow/Resident/Physician Brim Pouncing Machine Operator: Not applicable Organs Examined: Heart Pericardial fluid: Absent Right ventricle size: Normal LV Contractility: Poor: [place] akinetic RV Contractility: Hyperdynamic IVC no respiratory variation Blood pressure 84/63 heart rate 98 Intravascular volume status: Euvolemic Impression: Cardiogenic shock with decreased left ventricular function Images obtained are saved for permanent record
[2018-08-12] MEDS: NOREPINEPHRINE BIT INJ 8 MG in DEXTROSE 5% 500 ML IV SCH ×2 (20:29→20:38)
[2018-08-12] MEDS ORDERED: ICU PROTOCOL FOR HYPERGLYCEMIA PRN (20:31)
[2018-08-12 20:56] LABS: Partial Thromboplastin Time 25.9 Seconds (21.0-31.0)
[2018-08-12] MEDS ORDERED: TRAMADOL HCL 50 MG TABLET PO PRN (20:59)
[2018-08-12] MEDS ORDERED: PROCHLORPERAZINE 5 MG in SYRINGE 4 ML IV PRN (20:59)
[2018-08-12] MEDS ORDERED: ACETAMINOPHEN 325 MG TAB PO PRN (20:59)
[2018-08-12] MEDS ORDERED: fentaNYL citrate 100 MCG/2 ML VIAL IV PRN (20:59)
[2018-08-12] MEDS ORDERED: XOPENEX/ATROVENT 1.25mg/0.5MG NEB COMBO NEB PRN (22:12)
[2018-08-12] MEDS ORDERED: IPRATROPIUM BROMIDE NEB SOLN 0.02% 2.5 ML VIAL INH PRN (22:15)
[2018-08-12] MEDS ORDERED: LEVALBUTEROL 1.25MG/0.5ML NEB INH PRN (22:15)
[2018-08-12] MEDS: LORazepam 0.25 MG/0.5 ML VIAL IV PRN (23:11)
[2018-08-12] MEDS ORDERED: MoRPHine SULF/NSS 250 MG/250 ML BTL IV PRN (23:19)
--- NOTE | 2018-08-12 23:32 | Critical Care Progress Note ---
Date of Service August 12, 2018 Subjective I did reevaluate the patient and had an extensive conversation with family. At this point, the patient is increasingly agitated. Family is requesting something for comfort. She does have 12.5 mcg fentanyl available. At this point, nursing staff was instructed to give a one-time dose. Patient had received 0.5 mg Ativan in the emergency department which rendered her very somnolent. I did come back and speak with the family again as they were requesting an additional dose of Ativan. At this point, I did have a thorough conversation with the patient discussing goals of care, particularly proceeding with comfort measures only. I explained that at this point that the pressors are being used to augment the patient's heart function and comfort medications are already instilled. After family huddle, they do elected to proceed with comfort measures only. They wish to discontinue the norepinephrine. They are requesting medication to help with comfort. I did offer morphine drip. In addition, the patient has Ativan available as well. At this point, we will proceed with comfort measures only with the understanding that initiating these medications will limit patient's current limited state communication ability as well as likely proceed towards expiration. They are all comfortable in decision making and agree with proceeding with comfort measures only with goals of care directed towards end-of-life measures. I have personally spent 30 minutes of critical care time in the direct management of this patient. This is a life/limb threatening event. This includes time spent evaluating patient, direct bedside care, chart review, placing orders, interpretation of diagnostic studies, discussion with consultants, patient, and family members, as well as other required patient management activities. This time is exclusive of all separately billable procedures, and teaching time and separate from and in addition to any other critical care service time. Physical Exam 2 Vital Signs (Past 24 Hours): Last Vital Signs Temp 36.3 C L 08/12/18 17:02 Pulse 126 H 08/12/18 23:17 Resp 20 08/12/18 23:17 BP 81/54 L 08/12/18 23:17 Pulse Ox 92 08/12/18 23:17
[2018-08-13] MEDS: LORazepam 0.25 MG/0.5 ML VIAL IV PRN (00:05)
--- NOTE | 2018-08-13 00:42 | Discharge Summary ---
Date of Service August 13, 2018 Admission HPI Per Admitting Provider 83 year old female who was brought to the ED by her family for evaluation of shortness of breath. Due to patient's current mental status, history is unobtainable from her. Patient's daughter and [id number] are at the bedside and provide the history. The daughter reports that she received a phone call from her brother earlier today stating that her mother was not well. When she arrived to her mother's house, she found the patient short of breath , wheezing, and mildly confused. Patient also was incontinent of stool which is very unusual for her. She was then brought to the ED for further evaluation. Daughter also reports that her mother has been complaining of back pain for the past couple of days. No other reported symptoms. In the ED, patient was found to be severely ill with hypotension and respiratory distress. She was given IV Ativan and placed on BiPAP. Chest x-ray showing congestive heart failure with pneumonia versus atelectasis. She has several lab abnormalities including WBC 16 K, creatinine 2.5, lactate 10.6, troponin > 200 with acute EKG changes. Bedside cardiac ultrasound completed by Dr. Pimentel demonstrates severe left ventricular dysfunction. In the ED, patient was also given IVF, IV cefepime, nebulizer treatment. Principal Diagnosis Cardiogenic shock secondary to acute myocardial infarction Discharge Data Allergies Allergy/AdvReac Type Severity Reaction Status Date / Time No Known Allergies Allergy Unverified 08/12/18 18:22 Consultations 08/12/18 18:38 ED Decision to Admit Stat 08/12/18 20:31 Consult Case Management - Discharge Planning Routine Consult Sleeping Bag Filler Routine Consult Palliative Care Routine Ordered Studies 08/12/18 20:13 US point of care ultrasound Routine Hospital Course (1) Cardiogenic shock: Upon arrival at the ER, SBP noted to be 60-70s. Levophed initiated at the ER. A bedside 2D echo showed an akinetic LV apex. Patient and family declined active management of cardiac and other medical issues as per discussion with ICU provider. Continuation of pressor therapy was however requested by family to temporize patient decline until patient family arrives. DNR status however reaffirmed. Progressive agitation noted at the ICU. Patient family requested for transition to comfort measures. Patient pronounced by ICU provider on August 13, 2018 at 00:22 AM. Total time to prepare this discharge summary was 10 minutes. Total Time Total Time Spent Total Time Spent (In Minutes): 10 Discharge Plan Discharge Items Patient Disposition: Admission Data Admit Date/Time: 08/12/18 19:34 Service: Intensive Care Unit Other DC Date/Time DO NOT enter until pt leaves facility: 08/13/18 00:40
--- NOTE | 2018-08-13 06:10 | Death Summary ---
Date of Service August 13, 2018 Pronouncement Note Contributing Factors (1) Respiratory failure: (2) Cardiogenic shock: (3) Acute renal failure: Additional Data Attending physician: Keanu Naranjo MD Date: 08/13/2018 Time: 21 I was contacted by nursing staff regarding the patients declining status and concerns for imminent demise. In short, patient was admitted for hypotension likely in the setting of cardiogenic shock. Patient presented with hypotension with an elevated troponin of greater than 200. In the emergency department, the patient was placed on BiPAP for increasing respiratory drive in the setting of pulmonary edema. Bedside ultrasound demonstrated poor LV output. Despite increasing doses of Levophed, the patient remained hypotensive. The patient did become more awake and alert per short period of time, however she developed increasing agitation. At that point, family did request increasing sedation. After extensive conversation, the patient did wish to make the patient comfort measures only. The patient was placed on a morphine drip and her levo fed was titrated down. Shortly after the Levophed was discontinued, the patient did become bradycardic and eventually asystolic at 0022. Assessment: I presented to the patients room for evaluation. Upon assessment, the patient was found to be in a terminal state. Pupils were fixed and dilated without response. No palpable pulses appreciated. No spontaneous breaths noted. Heart sounds were absent. No response to painful stimuli. Time of : 21 as pronounced by myself. Family present at bedside. Appropriate response to grief appreciated. Condolences provided. Questions were addressed and emotional support was provided. Patients primary service was contacted and made aware of patient demise. Pronouncement section of the Certificate was filled out and signed by myself. Cause of : Primary - Myocardial Infarction Secondary - Cardiogenic Shock Contributing Causes of - Hypoxia, Pulmonary Edema, Hypotension Please feel free to contact me with any questions regarding the above-mentioned course.
== END 2018-08-13 00:40 | disposition expired | DRG 189 ==
LOC: ED 16:56 → 1E 19:34